=== PATIENT | male | born 1985 | race Caucasian/White ===

== ENCOUNTER 2020-06-20 17:47 | Emergency (ER) | payer SELFPAY ==
[~2020-06-20] VITALS: Ht 185.4 cm; Wt 99.4 kg
--- NOTE | 2020-06-20 18:12 | NUR ---
VEHICLE CHECK IN CLERK; PT TO ROOM FROM ROBERT MCCORMACK.
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
--- NOTE | 2020-06-20 18:57 | NUR ---
REPORT FROM MARY KAY KWAN
[2020-06-20] MEDS ORDERED: ACETAMINOPHEN 500 MG TABLET PO ONE (19:00)
[2020-06-20] MEDS ORDERED: ACETAMINOPHEN 500 MG TABLET ONE (19:05)
[2020-06-20 20:01] VITALS: BP 122/83
[2020-06-20] MEDS ORDERED: KETOROLAC 30 MG/1 ML ONE (20:10)
[2020-06-20] MEDS ORDERED: DIPH,PERTUSS(ACELL),TET VAC/PF 0.5 ML IM-VACC ONE ×2 (20:30→20:32)
[2020-06-20] MEDS ORDERED: KETOROLAC 30 MG/1 ML IM ONE (20:30)
--- NOTE | 2020-06-20 21:00 | NUR ---
Patient given discharge instructions and they have confirmed that they understand the instructions. Patient ambulatory with steady gait.
== END 2020-06-20 21:03 | disposition home or self-care (01) ==
LOC: ED 20:45
DX: S06.0X1A Concussion with loss of consciousness of 30 minutes or less, initial encounter (principal); Y04.8XXA Assault by other bodily force, initial encounter; Y93.89 Activity, other specified; Y92.89 Other specified places as the place of occurrence of the external cause; Y99.8 Other external cause status
CPT/HCPCS: 70450; 71045; 72125; 90471; 90715; 93005; 96372; 99285; J1885